=== PATIENT | male | born 1980 | race Caucasian/White ===

== ENCOUNTER 2017-05-02 05:50 | Inpatient (IN) | payer MEDICAID ==
[2017-04-30 14:44] LABS: BASOPHILS 0.4 % (0-2); HEMATOCRIT 43.9 % (42.0-54.0); HEMOGLOBIN 14.8 g/dL (13.5-17.5); IMMATURE GRANULOCYTES 0.3 % (0-5); LYMPHOCYTES 21.7 % (15-50); MCHC 33.7 g/dL (31.0-37.0); MCV 91.8 fL (80.0-100.0); MEAN PLATELET VOLUME 9.9 fL (7.4-10.4); MONOCYTES 9.3 % (2-11); NEUTROPHILS 66.3 % (40-80); PLATELET COUNT 252 10x3/uL (130-400); RBC 4.78 10x6/uL (4.20-6.10); RDW 12.5 % (11.5-14.5); WBC 6.9 10x3/uL (4.8-10.8)
[2017-04-30 14:56] LABS: APPEARANCE CLEAR (CLEAR); BILIRUBIN NEGATIVE (NEGATIVE); COLOR YELLOW (YELLOW); GLUCOSE NEGATIVE (NEGATIVE); KETONE NEGATIVE (NEGATIVE); LEUKOCYTE ESTERASE NEGATIVE (NEGATIVE); NITRITE NEGATIVE (NEGATIVE); PROTEIN NEGATIVE (NEGATIVE); SPECIFIC GRAVITY 1.015 (1.005-1.020); UROBILINOGEN NORMAL (NORMAL)
[2017-04-30 15:04] LABS: INR 1.03 (0.85-1.17); PROTIME 13.3 SECONDS (11.6-15.0)
[2017-04-30 15:07] LABS: CALCIUM 9.1 mg/dL (8.5-10.1); CARBON DIOXIDE 29.7 mmol/L (21.0-32.0); CHLORIDE - SERUM 103 mmol/L (98-107); CREATININE - SERUM 1.1 mg/dL (0.6-1.3); GLUCOSE 94 mg/dL (74-106); UREA NITROGEN 18 mg/dL (7-18); eGFR NON AFRICAN AMERICAN 80 mL/min (90-120)
[2017-04-30 15:20] LABS: CALC OSMOLALITY 282 mosm/kg (275-300); POTASSIUM - SERUM 4.2 mmol/L (3.5-5.1); SODIUM 141 mmol/L (136-145)
[~2017-05-02] VITALS: Ht 185.4 cm; Wt 90.9 kg
[2017-05-02] VITALS (7 sets, daily range): BP systolic 116–136; BP diastolic 63–75; Ht 185.4 cm; Wt 90.9 kg
[~2017-05-02 05:50] MED LIST: NEURONTIN600 MG PO; PERCOCET 10/3251 TA1 PO; VALIUM5 MG PO
--- NOTE | 2017-05-02 13:55 | NUR ---
I GAVE DILAUDID 0.5MG AT 1111 AND 0.5MG 1114. I TRIED TO GO BACK INTO THE MAR AND EDIT THE TIMES BUT WAS UNABLE TO AND GIVEN AN ERROR MESSAGE.
--- NOTE | 2017-05-02 19:00 | NUR ---
BEDSIDE REPORT RECEIVED AND CARE OF PT ASSUMED. PT LYING IN SUPINE POSITION VISITING WITH FAMILY MEMBERS. DRESSING ON BACK CLEAN AND DRY WITH FAINT DRAINAGE STAINING. IV IN RIGHT HAND PATENT WITH LR INFUSING AT KVO AND MORPHINE PRODUCTION PLANNING MANAGER IN USE FOR PAIN CONTROL. WILL MONITOR CLOSELY FOR NEEDS.
--- NOTE | 2017-05-02 19:20 | NUR ---
PT REQUESTING PAIN MEDICATIONS FOR PAIN AT LEVEL 8/10. GAVE PERCOCET 10 X2 TABS PER PRN ORDER. WILL MONITOR FOR EFFECTIVENESS.
--- NOTE | 2017-05-02 21:41 | NUR ---
HS MEDICAITONS GIVEN TO INCLUDE VALIUM PER PRN ORDER. WILL CONTINUE TO MONITOR FOR NEEDS. DAUGHTER IS AT BEDSIDE.
--- NOTE | 2017-05-02 23:22 | NUR ---
GAVE PERCOCET X2 TAB PER REQUEST FOR PAIN AT LEVEL 7/10. WILL MONITOR FOR EFFECTIVENESS.
[2017-05-03] VITALS: BP 115/56
--- NOTE | 2017-05-03 00:48 | NUR ---
PT RESTING IN SUPINE POSITION WITH LEGS ELEVATED, WITH EYES CLOSED AND EASY RESPIRATIONS. DAUGHTER IS AT BEDSIDE. SIDE RAILS UP X2 FOR SAFETY.
[2017-05-03 04:00] VITALS: BP 117/62
[2017-05-03 05:30] LABS: BASOPHILS 0.1 % (0-2); EOSINOPHILS 0.1 % (0-7); HEMATOCRIT 41.3 % (42.0-54.0); HEMOGLOBIN 13.6 g/dL (13.5-17.5); IMMATURE GRANULOCYTES 0.3 % (0-5); LYMPHOCYTES 5.1 % (15-50); MCH 30.7 pg (26.0-34.0); MCHC 32.9 g/dL (31.0-37.0); MCV 93.2 fL (80.0-100.0); MEAN PLATELET VOLUME 9.7 fL (7.4-10.4); MONOCYTES 9.3 % (2-11); NEUTROPHILS 85.1 % (40-80); PLATELET COUNT 220 10x3/uL (130-400); RBC 4.43 10x6/uL (4.20-6.10); RDW 12.4 % (11.5-14.5); WBC 15.4 10x3/uL (4.8-10.8)
[2017-05-03 06:02] LABS: CALC OSMOLALITY 285 mosm/kg (275-300); CALCIUM 8.5 mg/dL (8.5-10.1); CARBON DIOXIDE 28.6 mmol/L (21.0-32.0); CHLORIDE - SERUM 105 mmol/L (98-107); CREATININE - SERUM 1.1 mg/dL (0.6-1.3); GLUCOSE 149 mg/dL (74-106); POTASSIUM - SERUM 3.6 mmol/L (3.5-5.1); SODIUM 141 mmol/L (136-145); UREA NITROGEN 17 mg/dL (7-18); eGFR NON AFRICAN AMERICAN 80 mL/min (90-120)
--- NOTE | 2017-05-03 07:20 | NUR ---
ASSESSMENT COMPLETE. IV TO R HAND PATENT. ROSE GROWER DC'D AND IV CONVERTED TO SL. SCD'S IN USE TO BILAT LEGS. COMPLAINING OF SLIGHT TINGLING IN LEGS/FEET. DENIES ANY NEEDS AT THIS TIME.
--- NOTE | 2017-05-03 08:45 | NUR ---
DRESSING TO LOWER BACK SATURATED WITH SEROSANGUINEOUS DRAINAGE. LION INTACT TO INCISIONS X 2. INCISIONS CLEANED WITH SALINE AND COVERED WITH AIRSTRIPS.
[2017-05-03 09:27] VITALS: BP 121/75
--- NOTE | 2017-05-03 13:06 | NUR ---
VISITING WITH FAMILY.
[2017-05-03 13:20] VITALS: BP 118/69
[2017-05-03 16:40] VITALS: BP 115/61
--- NOTE | 2017-05-03 18:20 | NUR ---
DRESSING TO LOWER BACK CHANGED PER PATIENT REQUEST. SMALL AMOUNT OF SEROSANGIOUS DRAINAGE NOTED. AMBULATING IN HALLWAY WITH . DENIES ANY NEEDS AT PRESENT.
--- NOTE | 2017-05-03 19:00 | NUR ---
BEDSIDE REPORT RECEIVED AND CARE OF PT ASSUMED. PT LYING IN SUPINE POSITION VISITING WITH FAMILY MEMBERS. IV IN RIGHT HAND SALINE LOCKED. DRESSING ON BACK CLEAN AND DRY. WILL MONITOR CLOSEY FOR NEEDS.
[2017-05-03 20:00] VITALS: BP 117/67
--- NOTE | 2017-05-03 21:39 | NUR ---
HS MEDICATIONS GIVEN TO INCLUDE ROBAXIN, VALIUM AND PERCOCET PER PT REQUEST FOR PAIN , SLEEP AND ANXIETY. WILL CONTINUE TO MONITOR FOR NEEDS.
[2017-05-04] VITALS: BP 102/43
--- NOTE | 2017-05-04 00:30 | NUR ---
PT RESTING QUIETLY IN SUPINE POSITION WITH LEGS ELEVATED. IS AT BEDSIDE. CALL LIGHT WITHIN REACH.
[2017-05-04 04:00] VITALS: BP 126/59
--- NOTE | 2017-05-04 05:15 | NUR ---
GAVE COFFEE AND PRUNE JUICE PER REQUEST, TRYING TO STIMUALATE A BM.
[2017-05-04 05:18] LABS: BASOPHILS 0.2 % (0-2); EOSINOPHILS 0 % (0-7); IMMATURE GRANULOCYTES 0.6 % (0-5); LYMPHOCYTES 11.8 % (15-50); MCH 29.8 pg (26.0-34.0); MCHC 33.3 g/dL (31.0-37.0); MEAN PLATELET VOLUME 9.2 fL (7.4-10.4); MONOCYTES 5.7 % (2-11); NEUTROPHILS 81.7 % (40-80); PLATELET COUNT 196 10x3/uL (130-400); RBC 4.03 10x6/uL (4.20-6.10); RDW 14.1 % (11.5-14.5)
[2017-05-04 05:19] LABS: MCV 89.3 fL (80.0-100.0); WBC 6.4 10x3/uL (4.8-10.8)
[2017-05-04 05:27] LABS: CALC OSMOLALITY 277 mosm/kg (275-300); CARBON DIOXIDE 25.8 mmol/L (21.0-32.0); CHLORIDE - SERUM 106 mmol/L (98-107); CREATININE - SERUM 0.7 mg/dL (0.6-1.3); GLUCOSE 208 mg/dL (74-106); POTASSIUM - SERUM 3.7 mmol/L (3.5-5.1); SODIUM 137 mmol/L (136-145); UREA NITROGEN 6 mg/dL (7-18); eGFR NON AFRICAN AMERICAN > 90 mL/min (90-120)
--- NOTE | 2017-05-04 05:38 | NUR ---
PT UP AMBULATING IN THE SHAH AT THIS TIME...STATES FEELING MORE MOBILE THIS MORNING.
--- NOTE | 2017-05-04 07:30 | NUR ---
RESTING QUIETLY WITH EYES CLOSED. RESP EVEN,NONLABORED. FAMILY AT BEDSIDE.
[2017-05-04 07:59] VITALS: BP 121/70
--- NOTE | 2017-05-04 08:07 | OP ---
PATIENT NAME: FREDIS GAYTAN MEDICAL RECORD: [id number] :81 LOCATION:[id number] ADMISSION DATE:05/02/17 SURGEON: SABINE REINA MD OPERATION DATE: 05/02/17 PREOPERATIVE DIAGNOSIS: 1. Left S1 radiculopathy. 2. L5-S1 spondylolisthesis - grade 2. POSTOPERATIVE DIAGNOSIS: 1. Left S1 radiculopathy. 2. L5-S1 spondylolisthesis - grade 2. PROCEDURE PERFORMED: 1. Posterior segmental instrumentation in form of bilateral pedicle screw placement at L5 and S1. 2. Application of intravertebral biomechanical device in the form of NuVasive MAS-PLIF cage at L5-S1 via left-sided approach. 3. Posterior interbody arthrodesis using endplate rasp, curettes, autograft at L5-S1. 4. Posterolateral arthrodesis on the right side at the L5-S1 facet joint with decortication and implantation of autograft. 5. Left L5 hemilaminectomy, medial facetectomy and discectomy. IMPLANTS: NuVasive MAS-PLIF system with 6.5 x 50 millimeter screws bilaterally at L5, 7.5 x 45 millimeter screws bilaterally at S1, 12 x 9 x 28 millimeter 12 degree MAS-PLIF NuVasive cage, 50 millimeter ale on the left side, 45 millimeter ale on the right side. SPECIMENS: None. ESTIMATED BLOOD LOSS: 150 milliliters. FINDINGS: No durotomy; no nerve root responses greater than 40 milliamps at any point throughout screw placement; no sustained EMG firing at any point throughout the surgery decompression. COMPLICATIONS: None apparent. HISTORY: Fredis Gayatn is a pleasant 37-year-old male who presented to clinic with progressive severe left lower extremity and low back pain. Imaging was consistent with spondylolisthesis at L5-S1 with subluxation on flexion/extension films. I had an extensive discussion with Mr. Gaytan regarding his presentation, imaging, risks, benefits, and options of continued conservative therapy versus operative intervention in the form of a L5-S1 PLIF. He ultimately chose to undergo the operative intervention. The risks and benefits were discussed with him in detail. PROCEDURE IN DETAIL: Mr. Gaytan with identified by the anesthesia team, transported to the operative therapy with general endotracheal anesthesia commenced and all appropriate lines and tubes were placed. He was gently transferred over in the prone position on the operative bed where his pressure points were padded and his chest was placed on chest bolsters. Arms are placed in superman position. The eyes were accounted for by the anesthesia team. Lumbar region was prepped and draped in usual sterile fashion. Timeout was performed and agreed to by those OPERATIVE REPORT [id number] FREDIS GAYTAN present prior to starting the procedure. The patient did receive IV antibiotics prior to the start of the procedure . Using biplanar fluoroscopy, L5 and S1 pedicle screw percutaneous entry points were marked and two longitudinal paramedian incisions were ultimately marked and infiltrated 1% Lidocaine with epinephrine. A 10 blade was used to make the initial skin incision. A Bovie and electrocautery was used to dissect down to the fascia which was dissected and transected again with the Bovie electrocautery. Using again biplanar fluoroscopy, continuous electromyography nerve stimulation with Jamshidi needles, the pedicles with cannulated at L5 and S1 bilaterally and K-wires were placed without difficulty. On the left side the 6.5 x 50 millimeter left L5 screw with the MAS-PLIF blade attached was inserted under lateral fluoroscopy to the appropriate depth and the process repeated for the 7.5 x 45 millimeter screw at S1. The MAS-PLIF retractor was engaged and the medial blade was applied. A small amount of muscle was resected over the left L5 laminar and medial facet junction between the L5 and S1 screws. Using a combination of osteotomes, Kerrison rongeurs, and pituitary rongeurs, the bony decompression was performed and autograft was harvested and cleaned free of the soft tissue for use later in the case. This uncovered the L5-S1 disc space, the entry point of which was identified on lateral fluoroscopy and a 15 blade was used to make annulotomy. Using progressively sized valeria up to ultimately 12 millimeters in height, the discectomy was performed along with pituitary rongeurs. The green curette and rasp were used to prepare the endplates for arthrodesis. The 12 millimeter trial was inserted without difficulty and ultimately the previously mentioned MAS-PLIF cage which was 12 x 9 x 28 millimeters with 12 degrees lordosis was packed with autograft and prepared for insertion. Prior to insertion, the bone funnel was used to deliver autograft which had been morselized by high speed bone mill into the L5-S1 disc space after the endplates had been prepared. The cage was then inserted under lateral fluoroscopy to the appropriate depth and delivered without difficulty. A copious amount of irrigation was used on the operative tract. The MAS-PLIF retractor blades were then removed and the same size screws that were previously mentioned were inserted on the right side with the MAS-PLIF blades. The blades were engaged and a small amount of muscle was resected over the right L5-S1 facet joint. This was decorticated with the high speed matchstick drill and the synovium was curetted out with angled curettes. The bone funnel was then used to deliver autograft into the fact joint for posterolateral arthrodesis. A copious amount of irrigation was then used down this operative tract. The MAS-PLIF blades were removed and the two loops with the percutaneous towers were applied. Please note that prior to removal of MAS-PLIF blades on the left side, the two loop screw heads at the towers were also applied on that side as well. 50 millimeter ale was inserted on the left side and set screws were delivered and ultimately final tightened without difficulty. The process was repeated with a 45 millimeter ale on the right. Again the set screws were delivered and final tightened without incident. The towers were removed and copious amount of irrigation was used into both incisions. 1 gram of vancomycin powder was split between both incisions and sprinkled into the subfascial and suprafascial space. Final x-rays were taken which revealed appropriate placement of the implants and 0 Vicryl sutures were used in interrupted fashion to reapproximate the fascia bilaterally in a watertight fashion. The subdermal region was closed with inverted interrupted 2-0 Vicryl sutures. The skin was closed with joss. The wound and the incisions were cleaned with wet and dry dressing and sterile dressing was then applied. All sponge and needle counts were correct times two at the end of the case. As previously mentioned there was no nerve root responses at greater than 40 milliamps at any point throughout Jamshidi or screw placement. There was no sustained EMG nerve root firing on continuous EMG throughout the procedure. He tolerated the procedure well without any apparent complications. I updated his family immediately postoperative regarding the course of the surgery and all their questions were answered. OPERATIVE REPORT [id number] FREDIS GAYTAN JUSTIN T MD at 0807 CC: [id number] DICTATION DATE: 05/02/17 1300 BARREL COOPER: ROXANNE 05/03/17 1136 ADM IN [facility] [address] [id number]
[2017-05-04] MEDS ORDERED: ROBAXIN-750750 MG PO (08:09)
[2017-05-04] MEDS ORDERED: VALIUM5 MG PO (08:09)
[2017-05-04] MEDS ORDERED: COLACE100 MG PO (08:10)
[2017-05-04] MEDS ORDERED: PERCOCET 10/3251 TA1 PO (08:10)
--- NOTE | 2017-05-04 08:15 | NUR ---
ASSESSMENT COMPLETE. SL TO R HAND. DRESSING TO LOWER BACK C/D/I. SCDS IN USE TO BILAT LEGS. FAMILY AT BEDSIDE. DENIES ANY NEEDS AT PRESENT.
--- NOTE | 2017-05-04 09:08 | NUR ---
Patient Name: NEEMA Aldana [facility] Admission Status: Elective Accout number: [id number] Admission Date: 05-02-2017 : 1980 Admission Diagnosis: Attending: VICKY Current LOS: 2 Anticipated DC Date: 05-04-2017 Planned Disposition: Home Primary Insurance: [place] PRIVATE OPTIONS [place] Discharge Planning Comments: CM MET WITH PATIENT AND (CHELSEA) REGARDING D/C NEEDS AND PLANS. STATED HER SISTER IN LAW (KRISTIE) WILL BE DRIVING PATIENT HOME. PATIENT HAS NO STEPS TO ENTER HOME AND THERE IS A STAIRCASE INSIDE HOME THAT HE DOES NOT USE. PATIENT IS INDEPENDENT WITH HIS CARE AND DOES NOT HAVE ANY DME AT HOME. PATIENT REFUSED A WALKER AND STATED HE COULD GET ONE AT [facility] AND STATED SHE WOULD GET IT. PATIENT DID NOT WANT HOME HEALTH. PATIENTS PCP IS DR. NGUYỄN AND PHARMACY IS [facility]. CM WILL CONTINUE TO FOLLOW PATIENT WITH D/C NEEDS AND PLANS. PCP DR. GOPI CRISTOBAL AT [facility]- [phone] CHELSEA () [phone] Supervisor Aircraft Cleaning: Destinee Pina Is the patient Alert and Oriented? Yes 0 * How many steps to enter\exit or inside your home? STAIRCASE 0 * PCP DR. NGUYỄN 0 * Pharmacy [facility] 0 * Preadmission Environment Home with Family 0 * ADLs Independent 0 * Equipment None 0 * List name and contact numbers for known caregivers / representatives who currently or will assist patient after discharge: CHELSEA () [phone] 0 * Community resources currently utilized None 0 * Additional services required to return to the preadmission environment? Yes 0 * Can the patient safely return to the preadmission environment? Yes 0 * Has this patient been hospitalized within the prior 30 days at any hospital? No 0 Grand Total: 0
--- NOTE | 2017-05-04 09:52 | NUR ---
DISCHARGE TEACHING GIVEN TO PATIENT AND . SL REMOVED. CATHETER TIP INTACT. SCRIPTS FOR VALIUM AND PERCOCET GIVEN TO PATIENT.
--- NOTE | 2017-05-04 10:21 | NUR ---
CM REASSESSMENT NOTE: PATIENT IS DISCHARGING HOME TODAY-REF HOME HEALTH AND A WALKER. WILL GET ONE IF NEEDED. KRISTIE (FAMILY) IS DRIVING HIM HOME.
--- NOTE | 2017-05-04 10:35 | NUR ---
DC'D HOME WITH FAMILY. ESCORTED TO VEHICLE BY VOLUNTEER VIA WC WITH BELONGINGS.
== END 2017-05-04 10:35 | disposition home or self-care (01) | DRG 460 ==
LOC: D.OPS 05:50 → D.MS 05:50 → EDBD 07:30 → D.PAN 07:30 → D.OPS 07:30 → D.MS 11:45 → D.OPS 11:46 → D.MS 11:46
PROVIDERS: ADMIT Neurological Surgery
PROC: 0SB40ZZ Excision of Lumbosacral Disc, Open Approach (ICD-10-PCS; 2017-05-02)
PROC: 0SG30A1 (ICD-10-PCS; principal; 2017-05-02 07:30)
DX: M43.16 Spondylolisthesis, lumbar region (principal); M54.18 Radiculopathy, sacral and sacrococcygeal region